=== PATIENT | female | born 1975 | race Caucasian/White ===

== ENCOUNTER → 2016-07-05 | Outpatient (CLI) | payer OTHER ==
[~2016-07-05] MED LIST: DOCU10CA PO; IBUP600T26 PO; PERCOCET PO
--- NOTE | 2016-07-05 16:42 | REP ---
RIGHT UPPER QUADRANT SONOGRAPHY: HISTORY: Right upper quadrant pain. Comparison study is from January 12, 2016. This showed fatty infiltration of the liver. FINDINGS: Scanning through the right upper quadrant of the abdomen shows poor insonation of the liver with no focal lesion. Increased echogenicity again seen consistent with fatty infiltration. The common bile duct is somewhat dilated measuring 1.0 cm in greatest dimension. The gallbladder is dilated up to 12.5 cm in length. No stone is seen. Gallbladder wall thickness is borderline at 3.5 mm. Common bile duct 0.6 cm. There is no evidence of ascites or right renal abnormality. The right kidney measures 12.6 x 5.9 x 5.7 cm. Limited views of the pancreas show no abnormality. IMPRESSION: Dilated common bile duct and mildly dilated gallbladder without obvious etiology. Evidence of fatty infiltration of the liver. Pancreas partially obscured by abdominal gas. Signed by Pete Chinchilla MD 07/05/2016 06:01 P
== END ==
LOC: M RAD 07:21
PROVIDERS: ATTEND Physician Assistant
DX: R10.11 Right upper quadrant pain (principal)

== ENCOUNTER → 2016-07-26 | Day surgery (SDC) | payer OTHER ==
[~2016-07-26] VITALS: Ht 162.6 cm; Wt 131.5 kg
[~2016-07-26] MED LIST changes: +ACETAMINOPHEN 650 MG SUPP As Ordered ONE; +ACETAMINOPHEN 650 MG SUPP PR ONE; +IBUP800T23 PO; +IBUPROFEN 800 MG TAB PO SCH; +KETOROLAC 60 MG/2 ML VIAL (J1885) As Ordered ONE; +LIDOCAINE 2% INJ 100 MG/5 ML SDV (FOR ANES.) As Ordered ONE; +LR 1,000 ML IV SCH; +METOCLOPRAMIDE INJ 10MG/2ML VIAL (J2765) As Ordered ONE; +METOCLOPRAMIDE INJ 10MG/2ML VIAL (J2765) IV PRN; +MIDAZOLAM INJ 2 MG/2 ML VIAL (J2250) As Ordered ONE; +OMEP40CA2 PO; +ONDANSETRON 4MG/2ML VIAL (J2405) As Ordered ONE; +ONDANSETRON 4MG/2ML VIAL (J2405) IV PRN; +PERCOCET 5MG/325MG TAB PO PRN; +PROPOFOL 200 MG/20 ML VIAL As Ordered ONE; +fentaNYL 100 MCG/2 ML INJECTION (J3010) As Ordered ONE; +fentaNYL 100 MCG/2 ML INJECTION (J3010) IV PRN
[2016-07-26 07:23] LABS: MEAN CORPUSCULAR HEMOGLOBIN 29.2 pg (27.0-33.0); MEAN CORPUSCULAR VOLUME 88.3 fl (80.0-96.0); RED CELL DISTRIBUTION WIDTH 13.6 % (11.5-14.5); WHITE BLOOD COUNT 6.7 K/mm3 (4.0-10.0)
[2016-07-26 07:40] LABS: CONTROL LINE HCG INT CTR LINE PRESENT
--- NOTE | 2016-07-26 09:53 | RO ---
DATE OF PROCEDURE: 07/26/2016 PREOPERATIVE DIAGNOSIS: Menometrorrhagia. POSTOPERATIVE DIAGNOSIS: Menometrorrhagia. PROCEDURE: 1. Dilation and curettage (D and C). 2. Hysteroscopy. 3. NovaSure endometrial ablation. SURGEON: Dr. Tenzin Azar ADOBE MAKER: ANESTHESIA: COMPLICATIONS: None. ESTIMATED BLOOD LOSS: Less than 100 mL. TIME OF THE ENDOMETRIAL CYCLE: 1 minute and 10 seconds. SPECIMEN SENT TO THE LAB: Endometrial curetting. Janice is a 41-year-old female with a history of menometrorrhagia. After counseling in the office, a decision was made for dilation and curettage (D and C) hysteroscopy and NovaSure ablation. PROCEDURE: After obtaining informed consent and counseling the patient again in the holding area, she was then brought back under general anesthesia. She was draped and prepped in the usual sterile fashion. Straight catheter of the bladder was performed for approximately 100 mL of clear urine. We then placed a weighted speculum in the posterior fornix of the vagina. Using a Lee retractor, the anterior lip of the cervix was then grasped with a single-tooth tenaculum. The uterus was sounded to approximately 10 cm in size giving a cavity length of 6.5. The cervix was then serially dilated. A hysteroscope was inserted. The endometrial cavity was visualized. Bilateral tubal ostia visualized. No evidence of any polyp or fibroids. At this point, the hysteroscope was removed. A sharp curettage of the endometrial lining was done. The tissues were sent to pathology for final diagnosis. The NovaSure endometrial ablation device was inserted. The cavity length was adjusted to 6.5. The cavity width to 4.5. A cavity test was then done. After passing the cavity test, the device was enabled and the endometrial ablation cycle lasted approximately 1 minute and 10 seconds. Good ablative process noted. Good hemostasis noted. The patient tolerated the procedure well. She was then transferred to recovery room in stable condition.
[2016-07-26 11:00] VITALS: BP 134/63
== END | disposition home or self-care (01) ==
LOC: M SDC 06:43
PROVIDERS: ATTEND Obstetrics & Gynecology
DX: N92.0 Excessive and frequent menstruation with regular cycle (principal); G47.30 Sleep apnea, unspecified; K44.9 Diaphragmatic hernia without obstruction or gangrene; Z79.899 Other long term (current) drug therapy

== ENCOUNTER → 2016-07-28 | Outpatient (CLI) | payer OTHER ==
[~2016-07-28] MED LIST changes: -ACETAMINOPHEN 650 MG SUPP As Ordered ONE; -ACETAMINOPHEN 650 MG SUPP PR ONE; -IBUPROFEN 800 MG TAB PO SCH; -KETOROLAC 60 MG/2 ML VIAL (J1885) As Ordered ONE; -LIDOCAINE 2% INJ 100 MG/5 ML SDV (FOR ANES.) As Ordered ONE; -LR 1,000 ML IV SCH; -METOCLOPRAMIDE INJ 10MG/2ML VIAL (J2765) As Ordered ONE; -METOCLOPRAMIDE INJ 10MG/2ML VIAL (J2765) IV PRN; -MIDAZOLAM INJ 2 MG/2 ML VIAL (J2250) As Ordered ONE; -ONDANSETRON 4MG/2ML VIAL (J2405) As Ordered ONE; -ONDANSETRON 4MG/2ML VIAL (J2405) IV PRN; -PERCOCET 5MG/325MG TAB PO PRN; -PROPOFOL 200 MG/20 ML VIAL As Ordered ONE; -fentaNYL 100 MCG/2 ML INJECTION (J3010) As Ordered ONE; -fentaNYL 100 MCG/2 ML INJECTION (J3010) IV PRN
--- NOTE | 2016-07-28 10:43 | REP ---
MRCP EXAMINATION: HISTORY: Gallbladder disease. Comparison study CT examination July 10, 2016 and ultrasound exam July 05, 2016. TECHNIQUE: T2-weighted coronal TRUE FISP and axial T2 HASTE images are acquired. In addition, MRCP exam is acquired with maximum intensity projection images displayed rotational about the vertical axis. Source coronal images are also reviewed. MRCP FINDINGS: No focal hepatic lesion is seen. There appear to be regional areas of fat sparing in the right lobe. No ascites seen. The gallbladder is not dilated at the time of the MRCP exam. Common bile duct and pancreatic duct are normal in caliber. No filling defect is seen within the common bile duct or gallbladder to suggest biliary calculus. The visualized intrahepatic ducts are unremarkable. CBD measures 5 mm. IMPRESSION: Normal MRCP exam. Signed by Pete Chinchilla MD 07/28/2016 01:51 P
== END ==
LOC: M RAD 08:47
PROVIDERS: ATTEND Surgery
DX: K81.0 Acute cholecystitis (principal)

== ENCOUNTER → 2016-10-25 | Outpatient (CLI) | payer OTHER ==
--- NOTE | 2016-10-25 07:32 | ECGEPIP ---
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
--- NOTE | 2016-10-25 07:52 | REP ---
Clinical: Hypertension. Technique: PA and lateral. Comparison: 12/14/2014. Findings: Mediastinum and cardiac silhouette are normal. Lung diaz demonstrate increased bibasilar markings and atelectasis versus subtle fibrosis cannot be excluded. No effusion. No pneumothorax. Skeletal structures intact. Impression: Subtle lower lobe increased markings cannot exclude atelectasis and/or mild fibrosis. Consider chest CT for further investigation if the patient demonstrates symptoms. Signed by Austin Woodward MD 10/25/2016 07:43 A
[2016-10-25 07:55] LABS: MEAN CORPUSCULAR HEMOGLOBIN 29.3 pg (27.0-33.0); MEAN CORPUSCULAR HGB CONC 32.7 g/dl (32.0-36.5); MEAN CORPUSCULAR VOLUME 89.6 fl (80.0-96.0); RED CELL DISTRIBUTION WIDTH 13.5 % (11.5-14.5); WHITE BLOOD COUNT 7.5 K/mm3 (4.0-10.0)
[2016-10-25 08:29] LABS: ALBUMIN 3.3 GM/DL (3.2-5.2); ALBUMIN/GLOBULIN RATIO 0.92 (1.00-1.93); ALKALINE PHOSPHATASE 77 U/L (45-117); ALT/SGPT 37 U/L (12-78); ANION GAP 10 MEQ/L (8-16); AST/SGOT 10 U/L (15-37); BILIRUBIN,TOTAL 0.3 MG/DL (0.2-1.0); BLOOD UREA NITROGEN 9 MG/DL (7-18); CALCIUM LEVEL 8.6 MG/DL (8.5-10.1); CARBON DIOXIDE LEVEL 27 MEQ/L (21-32); CHLORIDE LEVEL 103 MEQ/L (98-107); CHOLESTEROL LEVEL 140 MG/DL (<200); CREATININE FOR GFR 0.63 MG/DL (0.55-1.02); GLOMERULAR FILTRATION RATE > 60.0 (>60); GLUCOSE, FASTING 101 MG/DL (70-105); POTASSIUM SERUM 4.4 MEQ/L (3.5-5.1); SODIUM LEVEL 140 MEQ/L (136-145); THYROXINE (T4) 11.4 UG/DL (4.5-12.0); TOTAL PROTEIN 6.9 GM/DL (6.4-8.2); TRIGLYCERIDES LEVEL 104 MG/DL (<150)
== END ==
LOC: M LAB 06:55
PROVIDERS: ATTEND Family Medicine
DX: I10 Essential (primary) hypertension (principal)

== ENCOUNTER → 2016-10-31 | Outpatient (CLI) | payer OTHER ==
--- NOTE | 2016-10-31 15:40 | REPMRS ---
Patient History The patient states she had a clinical breast exam in 06/16. denied.Patient had first child at age 37. No known family history of cancer. Digital Mammo Screening Bilat: October 31, 2016 - Exam #: [id number] Bilateral CC and MLO view(s) were taken. Technologist: Darcy Torres Technologist FINDINGS: There are scattered fibroglandular densities. There is no evidence of cancer on this mammogram. ASSESSMENT: BI-RADS/ACR category 2 mammogram. Benign finding(s). Recommendation Routine screening mammogram of both breasts in 1 year (for women over age 40). This mammogram was interpreted with the aid of an FDA-approved computer-aided dectection system. Electronically Signed By: Valentin Russell MD 10/31/16 0656
== END ==
LOC: M RAD 14:55
PROVIDERS: ATTEND Family Medicine
DX: Z12.31 Encounter for screening mammogram for malignant neoplasm of breast (principal)

== ENCOUNTER → 2017-01-11 | Outpatient (CLI) | payer OTHER ==
[~2017-01-11] MED LIST changes: +IBUP1TAB7 PO; -IBUP800T23 PO
--- NOTE | 2017-01-11 09:21 | REP ---
Chest x-ray: Two views. History: Spot on lung. . Comparison study: October 25, 2016 . Findings: The lungs are well inflated and free of infiltrate. The pleural angles are sharp. The heart size is normal. Pulmonary vasculature is not increased. No significant bony abnormality is seen. Impression: Negative chest x-ray. Signed by Pete Chinchilla MD 01/11/2017 09:13 A
== END ==
LOC: M RAD 06:59
PROVIDERS: ATTEND Family Medicine
DX: R91.8 Other nonspecific abnormal finding of lung field (principal)

== ENCOUNTER → 2017-04-05 | Outpatient (CLI) | payer OTHER ==
[2017-04-05 07:49] LABS: ALBUMIN 3.3 GM/DL (3.2-5.2); ALBUMIN/GLOBULIN RATIO 0.92 (1.00-1.93); ALKALINE PHOSPHATASE 70 U/L (45-117); ALT/SGPT 38 U/L (12-78); ANION GAP 9 MEQ/L (8-16); AST/SGOT 12 U/L (15-37); BILIRUBIN,TOTAL 0.2 MG/DL (0.2-1.0); BLOOD UREA NITROGEN 11 MG/DL (7-18); CALCIUM LEVEL 8.5 MG/DL (8.5-10.1); CARBON DIOXIDE LEVEL 24 MEQ/L (21-32); CHLORIDE LEVEL 106 MEQ/L (98-107); CREATININE FOR GFR 0.58 MG/DL (0.55-1.02); GLOMERULAR FILTRATION RATE > 60.0 (>60); GLUCOSE, FASTING 100 MG/DL (70-105); POTASSIUM SERUM 4.2 MEQ/L (3.5-5.1); SODIUM LEVEL 139 MEQ/L (136-145); TOTAL PROTEIN 6.9 GM/DL (6.4-8.2)
== END ==
LOC: M LAB 06:36
PROVIDERS: ATTEND Family Medicine
DX: R73.03 Prediabetes (principal)

== ENCOUNTER → 2017-05-21 | Outpatient (CLI) | payer OTHER, SELFPAY ==
[2017-05-21 08:14] LABS: FREE T4 1.2 NG/DL (0.76-1.46)
== END ==
LOC: M LAB 06:43
PROVIDERS: ATTEND Family Medicine
DX: Z86.39 Personal history of other endocrine, nutritional and metabolic disease (principal)

== ENCOUNTER → 2017-11-12 | Outpatient (CLI) | payer BC ==
[2017-11-12 14:38] LABS: ESTIMATED AVERAGE GLUCOSE 128 MG/DL (60-110); HEMOGLOBIN A1c 6.1 %
== END ==
LOC: M LAB 12:13
DX: R73.03 Prediabetes (principal)
CPT/HCPCS: 83036

== ENCOUNTER 2018-01-16 22:30 | Emergency (ER) | payer BC, SELFPAY | END 2018-01-17 03:10 | disposition home or self-care (01) | LOC: M ED 22:30 | DX: S62.636A Displaced fracture of distal phalanx of right little finger, initial encounter for closed fracture (principal); W22.8XXA Striking against or struck by other objects, initial encounter; Y92.099 Unspecified place in other non-institutional residence as the place of occurrence of the external cause; Y93.9 Activity, unspecified; Y99.9 Unspecified external cause status | CPT/HCPCS: 73140 ==

== ENCOUNTER 2018-04-24 13:18 | Emergency (ER) | payer BC, SELFPAY ==
[2018-04-24 14:36] LABS: BASO % 0.2 % (0.0-1.0); EOS # 0.1 10^3/uL (0.0-0.50); EOS % 0.8 % (0.0-3.0); HEMATOCRIT 37.3 % (36.0-47.0); HEMOGLOBIN 12.5 g/dl (12.0-15.5); IMMATURE GRANULOCYTE % 0.4 % (0-3.0); LYMPH # 1.7 10^3/uL (1.5-4.5); LYMPH % 14.2 % (24.0-44.0); MEAN CORPUSCULAR HEMOGLOBIN 29.9 pg (27.0-33.0); MEAN CORPUSCULAR HGB CONC 33.5 g/dl (32.0-36.5); MEAN CORPUSCULAR VOLUME 89.2 fl (80.0-96.0); MONO # 0.5 10^3/uL (0.0-0.8); MONO % 4.5 % (0.0-5.0); NEUTROPHILS # 9.4 10^3/uL (1.8-7.7); NEUTROPHILS % 79.9 % (36.0-66.0); PLATELET COUNT, AUTOMATED 296 10^3/uL (150-450); RED BLOOD COUNT 4.18 10^6/uL (4.00-5.40); RED CELL DISTRIBUTION WIDTH 13.1 % (11.5-14.5); WHITE BLOOD COUNT 11.8 10^3/uL (4.0-10.0)
[2018-04-24 14:51] LABS: KETONE, URINE AUTO RFX NEGATIVE (NEGATIVE); LEUKOCYTE ESTERASE UR AUTO RFX NEGATIVE (NEGATIVE); MUCUS, URINE RFX SMALL (NEGATIVE); NITRITE, URINE AUTO RFX NEGATIVE (NEGATIVE); RBC, URINE AUTO RFX 0 /HPF (0-3); SPECIFIC GRAVITY UR AUTO RFX 1.009 (1.002-1.035); SQUAM EPITHELIAL CELL UR AURFX 0 /HPF (0-6); WBC, URINE AUTO RFX 0 /HPF (0-3)
[2018-04-24 15:08] LABS: ANION GAP 8 MEQ/L (8-16); BLOOD UREA NITROGEN 9 MG/DL (7-18); CALCIUM LEVEL 8.8 MG/DL (8.5-10.1); CARBON DIOXIDE LEVEL 27 MEQ/L (21-32); CHLORIDE LEVEL 103 MEQ/L (98-107); CREATININE FOR GFR 0.82 MG/DL (0.55-1.30); GLOMERULAR FILTRATION RATE > 60.0 (>58); GLUCOSE, FASTING 137 MG/DL (70-100); POTASSIUM SERUM 3.9 MEQ/L (3.5-5.1); SODIUM LEVEL 138 MEQ/L (136-145)
[2018-04-24] MEDS ORDERED: ISOVUE-370 76% 100ML VIAL (Q9967) As Ordered (15:54)
[2018-04-24 15:58] LABS: ALBUMIN 3.6 GM/DL (3.2-5.2); ALKALINE PHOSPHATASE 90 U/L (45-117); ALT/SGPT 43 U/L (12-78); AST/SGOT 11 U/L (7-37); BILIRUBIN,DIRECT < 0.1 MG/DL (0.0-0.2); BILIRUBIN,TOTAL 0.2 MG/DL (0.2-1.0); LIPASE 141 U/L (73-393); TOTAL PROTEIN 7.2 GM/DL (6.4-8.2)
[2018-04-24] MEDS: NS 1,000 ML IV (16:10)
== END 2018-04-24 16:41 | disposition home or self-care (01) ==
LOC: M ED 13:18
DX: K57.32 Diverticulitis of large intestine without perforation or abscess without bleeding (principal); G47.30 Sleep apnea, unspecified; K76.0 Fatty (change of) liver, not elsewhere classified
CPT/HCPCS: Q9967

== ENCOUNTER → 2018-06-20 | Outpatient (CLI) | payer BC ==
[~2018-06-20] MED LIST changes: +CIPR-249 PO; +FLAG500T PO
[2018-06-20 15:30] LABS: HEMOGLOBIN A1c 6.4 %
== END ==
LOC: M LAB 14:40
PROVIDERS: ATTEND Family Medicine
DX: R73.03 Prediabetes (principal)

== ENCOUNTER → 2018-07-19 | Outpatient (CLI) | payer BC ==
--- NOTE | 2018-07-19 15:16 | REPMRS ---
Patient History The patient states she had a clinical breast exam in 07/20.No known family history of cancer. Digital Mammo Screening Bilat: July 19, 2018 - Exam #: [id number] Bilateral CC and MLO view(s) were taken. Technologist: Darcy Torres, Technologist Prior study comparison: October 31, 2016, bilateral digital mammo screening bilat performed at [facility]. FINDINGS: There are scattered fibroglandular densities. There has been no change in the appearance of the mammogram from the prior studies. There is a mild amount of scattered fibroglandular density which is fairly symmetric. There is no interval development of dominant mass, architectural distortion, or clustered microcalcification suggestive of malignancy. 3-D tomosynthesis shows no additional findings. Assessment: BI-RADS/ACR category 1 mammogram. Negative. Recommendation Routine screening mammogram of both breasts in 1 year (for women over age 40). This patient's Lifetime Breast Cancer RIsk is estimated at 14.8 %. This mammogram was interpreted with the aid of an FDA-approved computer-aided dectection system. Electronically Signed By: Stevie Chinchilla MD 07/19/18 2325
== END ==
LOC: M RAD 10:32
PROVIDERS: ATTEND Obstetrics & Gynecology
DX: Z12.31 Encounter for screening mammogram for malignant neoplasm of breast (principal)

== ENCOUNTER → 2018-07-19 | Outpatient (CLI) | payer BC ==
[2018-07-19 12:14] LABS: FREE T4 1.18 NG/DL (0.76-1.46); THYROID STIMULATING HORMONE 1.32 uIU/ML (0.358-3.740)
== END ==
LOC: M LAB 10:47
PROVIDERS: ATTEND Family Medicine
DX: Z86.39 Personal history of other endocrine, nutritional and metabolic disease (principal)

== ENCOUNTER → 2018-07-19 | Outpatient (CLI) | payer BC ==
[2018-07-19 11:56] LABS: ALBUMIN 3.6 GM/DL (3.2-5.2); ALT/SGPT 58 U/L (12-78); BILIRUBIN,DIRECT < 0.1 MG/DL (0.0-0.2); BILIRUBIN,TOTAL 0.2 MG/DL (0.2-1.0); TOTAL PROTEIN 7.6 GM/DL (6.4-8.2)
== END ==
LOC: M LAB 10:53
DX: B35.1 Tinea unguium (principal)

== ENCOUNTER → 2018-08-06 | Outpatient (CLI) | payer BC ==
--- NOTE | 2018-08-07 06:00 | REP ---
Clinical: Thyroid disorder. Technique: Real time servin scale and color evaluation using linear high frequency and curved array transducer. Findings: Thyroid gland is enlarged and mildly heterogeneous. The right lobe measures 5.7 x 2.2 x 1.6 cm and includes 6 x 3 x 6 mm isoechoic mid pole nodule and 3 x 3 x 4 mm lower pole cyst. Left lobe measures 6.1 x 1.8 x 1.9 cm with 3 x 2 x 2 mm lower pole cyst and 5 x 4 x 4 mm nodule with posterior wall calcification. Isthmus measures 7.1 mm in width. Impression: Heterogeneous mildly enlarged thyroid gland with few nonspecific cyst/nodules. Electronically Signed by Austin Woodward MD 08/07/2018 05:51 A
== END ==
LOC: M RAD 10:23
PROVIDERS: ATTEND Family Medicine
DX: Z86.39 Personal history of other endocrine, nutritional and metabolic disease (principal)

== ENCOUNTER 2018-11-25 13:32 | Emergency (ER) | payer BC ==
[~2018-11-25] VITALS: Ht 165.1 cm; Wt 137.4 kg
[~2018-11-25 13:32] MED LIST changes: +OXYC1TAB23 PO; -PERCOCET PO
--- NOTE | 2018-11-25 14:44 | REP ---
Clinical: Cough and dyspnea . Comparison: 01/11/2017 . Technique: PA and lateral. Findings: The mediastinum and cardiac silhouette are normal. The lung diaz are clear and without acute consolidation, effusion, or pneumothorax. The skeletal structures are intact and normal. Impression: 1. No acute cardiopulmonary process. Electronically Signed by Austin Woodward MD 11/25/2018 02:36 P
[2018-11-25 14:53] LABS: BASO % 0.4 % (0.0-1.0); EOS # 0.1 10^3/uL (0.0-0.50); HEMATOCRIT 38.5 % (36.0-47.0); HEMOGLOBIN 12.6 g/dl (12.0-15.5); LYMPH # 2.1 10^3/uL (1.5-4.5); LYMPH % 25.6 % (24.0-44.0); MEAN CORPUSCULAR HEMOGLOBIN 30.3 pg (27.0-33.0); MEAN CORPUSCULAR HGB CONC 32.7 g/dl (32.0-36.5); MEAN CORPUSCULAR VOLUME 92.5 fl (80.0-96.0); MONO # 0.4 10^3/uL (0.0-0.8); MONO % 4.4 % (0.0-5.0); NEUTROPHILS # 5.6 10^3/uL (1.8-7.7); NEUTROPHILS % 68.2 % (36.0-66.0); PLATELET COUNT, AUTOMATED 298 10^3/uL (150-450); RED BLOOD COUNT 4.16 10^6/uL (4.00-5.40); WHITE BLOOD COUNT 8.2 10^3/uL (4.0-10.0)
[2018-11-25 15:38] LABS: BLOOD UREA NITROGEN 10 MG/DL (7-18); CALCIUM LEVEL 9.2 MG/DL (8.5-10.1); CARBON DIOXIDE LEVEL 28 MEQ/L (21-32); CHLORIDE LEVEL 105 MEQ/L (98-107); CPK CREATINE PHOSPHOKINASE 88 U/L (26-192); CREATININE FOR GFR 0.79 MG/DL (0.55-1.30); GLOMERULAR FILTRATION RATE > 60.0 (>58); GLUCOSE, FASTING 114 MG/DL (70-100); MB/CK RELATIVE INDEX 1.14 (< OR =4); POTASSIUM SERUM 4.1 MEQ/L (3.5-5.1); SODIUM LEVEL 139 MEQ/L (136-145); TROPONIN I < 0.02 NG/ML (< 0.10)
[2018-11-25] MEDS ORDERED: NS 1,000 ML IV ONE (15:45)
[2018-11-25 16:15] LABS: FREE T4 1.06 NG/DL (0.76-1.46)
[2018-11-25 17:09] VITALS: O2SAT 94
[2018-11-25] MEDS ORDERED: ISOVUE-370 76% 100ML VIAL (Q9967) As Ordered ONE (17:33)
[2018-11-25 19:42] VITALS: BP 128/85
--- NOTE | 2018-11-25 21:09 | ECGEPIP ---
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 Order Number: [id number] Reading MD: Wilma Chavira Measurements Intervals [place] Rate: 77 P: 50 RI: 159 QRS: 3 QRSD: 93 T: 48 QT: 392 QTc: 446 Interpretive Statements SINUS RHYTHM LOW QRS VOLTAGE IN PRECORDIAL LEADS NONSPECIFIC T-WAVE ABNORMALITY SIMILAR 10/25/16 Electronically Signed on 11-25-2018 21:09:05 EDT by Wilma Chavira
--- NOTE | 2018-11-26 07:30 | REP ---
Clinical: Acute chest pain and shortness of breath. . Technique: Axial contrast enhanced images from the thoracic inlet to the upper abdomen using 100 ml Isovue 370 intravenous contrast material with coronal and sagittal re-formations. Findings: Satisfactory enhancement of the pulmonary vasculature is achieved and no filling defects are identified to suggest pulmonary embolus. Thoracic aorta is normal caliber without aneurysm or dissection. Heart and pericardium are normal. No adenopathy. Bilateral lung diaz demonstrate mild posterior basilar dependent changes and trace left basilar atelectasis. No consolidation. No nodule or mass lesion. No pleural effusion/reaction. No pneumothorax. Visualized musculoskeletal structures are intact without focal osseous abnormality. Limited upper abdomen demonstrates normal bilateral adrenal glands. Impression: No evidence for pulmonary embolus. Trace left basilar atelectasis. Electronically Signed by Austin Woodward MD 11/25/2018 05:46 P
== END 2018-11-25 19:59 | disposition home or self-care (01) ==
LOC: M ED 13:32
DX: J98.11 Atelectasis (principal); R73.03 Prediabetes; G47.33 Obstructive sleep apnea (adult) (pediatric); K21.9 Gastro-esophageal reflux disease without esophagitis
CPT/HCPCS: 36415; 71046; 71275; 80048; 82550; 82553; 84439; 84443; 85025; 85379; 93005; 99284; Q9967

== ENCOUNTER → 2018-12-18 | Outpatient (CLI) | payer OTHER ==
--- NOTE | 2018-12-18 14:22 | PFTRPT ---
Height: 65.00 Inches Weight: 290.00 Lbs BSA: 2.32 Diagnosis: R06.00 DATE OF PROCEDURE: 12/18/2018 ORDERED BY: Lexus Bryant DO Spirometry: Study of excellent technical quality. Forced vital capacity borderline. FEV1 in proportion. Obstructive index is, therefore, normal. Flow Volume Loop: Expiratory limb of the flow volume loop is reasonably normal. Lung Volumes: Total lung capacity normal. Residual volume is in proportion. Diffusing Capacity: Diffusing capacity normal. Hemoglobin: No hemoglobin available for correction. Airway Mechanics: Airway resistance and conductance are normal. IMPRESSION: Probably normal study. MTDD
== END ==
LOC: M CARPUL 13:52
PROVIDERS: ATTEND Family Medicine
DX: R06.00 Dyspnea, unspecified (principal)

== ENCOUNTER → 2018-12-18 | Outpatient (CLI) | payer OTHER, SELFPAY ==
--- NOTE | 2018-12-19 06:57 | ECHO ---
DATE OF PROCEDURE: 12/18/2018 DATE OF : 1975 AGE: 43 REFERRING PROVIDER: Dr. Lexus Bryant PATIENT LOCATION: Outpatient REASON FOR ECHOCARDIOGRAM: Shortness of breath. 2-D MEASUREMENTS: IVS: 1.2 cm LV: 4.8 cm LVPW: 1.2 cm LA: 4.0 cm Aorta: 2.7 cm DOPPLER MEASUREMENTS: Peak velocity across the aortic valve: 1.5 m/s Peak velocity across the LVOT: 1.3 m/s Mitral E: 1.0 Mitral: 0.70 Ratio: 1.4 Maximum tricuspid valve velocity: 2.2 m/s 2-D COMMENTS: 1. Technically limited study due to poor acoustic window secondary to lung interference and body habitus. 2. Normal left ventricular size, wall thickness, and normal global left ventricular systolic function. The estimated left ventricular systolic ejection fraction is 60-65%. 3. Borderline enlarged left atrium. Normal right atrium and right ventricle. 4. The atrial septum appeared to be normal without evidence of defect or shunt. 5. Normal aortic root. 6. No pericardial effusion seen. 7. The aortic valve, mitral valve, tricuspid valve, and pulmonic valve appeared to be normal. The proximal pulmonary artery branches were not well visualized. 8. Subjectively, the inferior vena cava appeared to be normal in size. DOPPLER: Detects trace mitral regurgitation and trace tricuspid regurgitation. The calculated pulmonary artery systolic pressure was normal. Assessment of the left ventricular diastolic function also appeared to be normal. IMPRESSION: 1. Normal global left ventricular systolic and diastolic function. 2. Borderline enlarged left atrium with trace mitral regurgitation. 3. Trace tricuspid regurgitation with a normal calculated pulmonary artery systolic pressure. 4. The study was technically limited due to poor acoustic window secondary to body habitus and lung interference. [facility]
== END ==
LOC: M CARPUL 13:49
PROVIDERS: ATTEND Family Medicine
DX: R06.00 Dyspnea, unspecified (principal)

== ENCOUNTER → 2019-08-22 | Outpatient (CLI) | payer OTHER ==
[~2019-08-22] MED LIST changes: -OMEP40CA2 PO; +OMEP40CA97 PO
--- NOTE | 2019-08-22 08:42 | REPMRS ---
Patient History The patient states she had a clinical breast exam in July 2019. No known family history of cancer. Digital Woman Screen Mammo: August 22, 2019 - Exam #: [id number] Bilateral CC and MLO view(s) were taken. Technologist: Batsheva Dewey Technologist Prior study comparison: July 19, 2018, bilateral digital mammo screening bilat, performed at [facility]. October 31, 2016, bilateral digital mammo screening bilat, performed at [facility]. FINDINGS: There are scattered fibroglandular densities. There has been no change in the appearance of the mammogram from the prior studies. There is a mild amount of scattered fibroglandular density which is fairly symmetric. There is no interval development of dominant mass, architectural distortion, or grouped microcalcification suggestive of malignancy. 3-D tomosynthesis shows no additional findings. Assessment: BI-RADS/ACR category 1 mammogram. Negative Mammogram. Recommendation Routine screening mammogram of both breasts in 1 year (for women over age 40). This patient's Lifetime Breast Cancer Risk is estimated at 14.6 %. This mammogram was interpreted with the aid of an FDA-approved computer-aided dectection system. Electronically Signed By: Stevie Chinchilla MD 08/22/19 0893
== END ==
LOC: M WHC 07:54
PROVIDERS: ATTEND Obstetrics & Gynecology
DX: Z12.31 Encounter for screening mammogram for malignant neoplasm of breast (principal)

== ENCOUNTER 2020-02-14 09:40 | Emergency (ER) | payer OTHER ==
[2020-03-29 14:05] LABS: BASO % 0.3 % (0.0-1.0); EOS # 0.1 10^3/uL (0.0-0.5); EOS % 0.8 % (0.0-3.0); HEMATOCRIT 39.9 % (36.0-47.0); LYMPH # 1.8 10^3/uL (1.5-5.0); LYMPH % 24.2 % (24.0-44.0); MEAN CORPUSCULAR HEMOGLOBIN 29.4 pg (27.0-33.0); MEAN CORPUSCULAR HGB CONC 32.6 g/dl (32.0-36.5); MEAN CORPUSCULAR VOLUME 90.3 fl (80.0-96.0); MONO # 0.4 10^3/uL (0.0-0.8); NEUTROPHILS % 69.3 % (36.0-66.0); PLATELET COUNT, AUTOMATED 314 10^3/uL (150-450); RED BLOOD COUNT 4.42 10^6/uL (4.00-5.40); WHITE BLOOD COUNT 7.3 10^3/uL (4.0-10.0)
== END 2020-02-14 13:22 | disposition home or self-care (01) ==
LOC: M ED 09:40
DX: R10.11 Right upper quadrant pain (principal); R11.0 Nausea; K76.0 Fatty (change of) liver, not elsewhere classified; K21.9 Gastro-esophageal reflux disease without esophagitis; K27.9 Peptic ulcer, site unspecified, unspecified as acute or chronic, without hemorrhage or perforation

== ENCOUNTER → 2020-03-05 | Outpatient (CLI) | payer OTHER ==
--- NOTE | 2020-03-30 13:35 | REP ---
HIDA SCAN WITH GALLBLADDER EJECTION FRACTION HISTORY: Right upper quadrant pain. TECHNIQUE: Following the intravenous administration of 6.5 mCi Technetium-99m mebrofenin, multiple images of the right upper quadrant are performed every five minutes for a period of one hour. FINDINGS: No focal parenchymal defect is seen. The gallbladder is visualized at 20 minutes post-injection. Biliary to bowel transit is seen at the one hour doris. At that point, 8 ounces of Ensure Enlive is ingested and further imaging performed for one hour. Gallbladder activity is measured and the gallbladder ejection fraction is calculated to be 47%, which is normal. IMPRESSION: Normal gallbladder ejection fraction. MTDD
== END ==
LOC: M RAD 07:38
PROVIDERS: ATTEND Surgery
DX: R10.11 Right upper quadrant pain (principal)
CPT/HCPCS: 78227; A9537

== ENCOUNTER → 2021-12-29 | Outpatient (CLI) | payer BC ==
[~2021-12-29] MED LIST changes: +OMEP40CA4 PO; -OMEP40CA97 PO
== END ==
LOC: M WHC 08:04
PROVIDERS: ATTEND Obstetrics & Gynecology
DX: Z12.31 Encounter for screening mammogram for malignant neoplasm of breast (principal)

== ENCOUNTER → 2023-01-04 | Outpatient (CLI) | payer BC | LOC: M WHC 06:47 | PROVIDERS: ATTEND Obstetrics & Gynecology | DX: Z12.31 Encounter for screening mammogram for malignant neoplasm of breast (principal) ==

== ENCOUNTER → 2023-07-06 | Outpatient (CLI) | payer OTHER ==
[2023-07-06 07:46] LABS: HEMATOCRIT 38.6 % (36.0-47.0); HEMOGLOBIN 12.2 g/dl (12.0-15.5); MEAN CORPUSCULAR HGB CONC 31.6 g/dl (32.0-36.5); MEAN CORPUSCULAR VOLUME 91.9 fl (80.0-96.0); PLATELET COUNT, AUTOMATED 293 10^3/uL (150-450); WHITE BLOOD COUNT 8.7 10^3/uL (4.0-10.0)
[2023-07-06 07:51] LABS: ALBUMIN 3.6 G/DL (3.2-5.2); ALKALINE PHOSPHATASE 79 U/L (46-116); ALT/SGPT 44 U/L (7.0-40); AST/SGOT 20 U/L (<34); BILIRUBIN,TOTAL 0.3 MG/DL (0.3-1.2); BLOOD UREA NITROGEN 9 MG/DL (9-23); CALCIUM LEVEL 9.1 MG/DL (8.5-10.1); CARBON DIOXIDE LEVEL 29 MMOL/L (20-31); CHLORIDE LEVEL 104 MMOL/L (98-107); CHOLESTEROL LEVEL 166 MG/DL (<200); CHOLESTEROL RISK RATIO 3.66 (<5); CREATININE FOR GFR 0.52 MG/DL (0.55-1.30); GLOMERULAR FILTRATION RATE > 60.0 (>58); GLUCOSE, FASTING 135 MG/DL (60-100); HDL CHOLESTEROL 45.3 MG/DL (>40); LDL CHOLESTEROL 98.1 MG/DL (<100); NON-HDL-C 120.7 MG/DL; POTASSIUM SERUM 4.3 MMOL/L (3.5-5.1); SODIUM LEVEL 138 MMOL/L (136-145); TOTAL PROTEIN 6.8 G/DL (5.7-8.2); TRIGLYCERIDES LEVEL 113 MG/DL (<150)
[2023-07-06 07:54] LABS: THYROID STIMULATING HORMONE 2.275 uIU/ML (0.55-4.78)
[2023-07-06 07:55] LABS: TOTAL 25(OH) VITAMIN D 34.1 NG/ML (20.0-100.0)
[2023-07-06 08:56] LABS: HEMOGLOBIN A1c 6.5 % (4.0-6.0)
== END ==
LOC: M RAD 07:00
PROVIDERS: ATTEND Family Medicine
DX: R53.83 Other fatigue (principal); I10 Essential (primary) hypertension; E03.9 Hypothyroidism, unspecified

== ENCOUNTER → 2023-07-09 | Outpatient (CLI) | payer OTHER | LOC: M WHC 11:27 | PROVIDERS: ATTEND Family Medicine | DX: R22.1 Localized swelling, mass and lump, neck (principal) ==

== ENCOUNTER → 2024-02-13 | Outpatient (CLI) | payer OTHER ==
[2024-02-13 07:06] LABS: HEMATOCRIT 39.2 % (36.0-47.0); HEMOGLOBIN 12.7 g/dl (12.0-15.5); MEAN CORPUSCULAR HEMOGLOBIN 30.8 pg (27.0-33.0); MEAN CORPUSCULAR HGB CONC 32.4 g/dl (32.0-36.5); MEAN CORPUSCULAR VOLUME 95.1 fl (80.0-96.0); PLATELET COUNT, AUTOMATED 285 10^3/uL (150-450); RED BLOOD COUNT 4.12 10^6/uL (4.00-5.40); WHITE BLOOD COUNT 7.7 10^3/uL (4.0-10.0)
[2024-02-13 07:20] LABS: HEMOGLOBIN A1c 6.2 % (4.0-6.0)
[2024-02-13 07:30] LABS: ALBUMIN 3.5 G/DL (3.2-5.2); ALKALINE PHOSPHATASE 76 U/L (46-116); ALT/SGPT 40 U/L (7.0-40); AST/SGOT 15 U/L (<34); BILIRUBIN,TOTAL 0.3 MG/DL (0.3-1.2); BLOOD UREA NITROGEN 10 MG/DL (9-23); CALCIUM LEVEL 8.9 MG/DL (8.5-10.1); CARBON DIOXIDE LEVEL 27 MMOL/L (20-31); CHLORIDE LEVEL 103 MMOL/L (98-107); CHOLESTEROL LEVEL 157 MG/DL (<200); CHOLESTEROL RISK RATIO 3.69 (<5); CREATININE FOR GFR 0.53 MG/DL (0.55-1.30); GLOMERULAR FILTRATION RATE > 60.0 (>58); GLUCOSE, FASTING 126 MG/DL (60-100); HDL CHOLESTEROL 42.5 MG/DL (>40); IRON (FE) 63 UG/DL (50-170); LDL CHOLESTEROL 87.9 MG/DL (<100); NON-HDL-C 114.5 MG/DL; PERCENT SATURATION 21.3 % (13.2-45.0); POTASSIUM SERUM 4.4 MMOL/L (3.5-5.1); SODIUM LEVEL 135 MMOL/L (136-145); TOTAL IRON BINDING CAPACITY 296 UG/DL (250-425); TOTAL PROTEIN 6.9 G/DL (5.7-8.2); TRIGLYCERIDES LEVEL 133 MG/DL (<150)
[2024-02-13 07:32] LABS: THYROID STIMULATING HORMONE 2.022 uIU/ML (0.55-4.78)
== END ==
LOC: M LAB 06:08
PROVIDERS: ATTEND Family Medicine
DX: R53.83 Other fatigue (principal); I10 Essential (primary) hypertension; E11.9 Type 2 diabetes mellitus without complications

== ENCOUNTER → 2024-06-27 | Outpatient (CLI) | payer OTHER ==
[2024-06-27 06:56] LABS: HEMATOCRIT 37.4 % (36.0-47.0); HEMOGLOBIN 12.2 g/dl (12.0-15.5); MEAN CORPUSCULAR HEMOGLOBIN 30.6 pg (27.0-33.0); MEAN CORPUSCULAR HGB CONC 32.6 g/dl (32.0-36.5); MEAN CORPUSCULAR VOLUME 93.7 fl (80.0-96.0); PLATELET COUNT, AUTOMATED 315 10^3/uL (150-450); RED BLOOD COUNT 3.99 10^6/uL (4.00-5.40); WHITE BLOOD COUNT 8.9 10^3/uL (4.0-10.0)
[2024-06-27 07:18] LABS: ALBUMIN 3.5 G/DL (3.2-5.2); ALKALINE PHOSPHATASE 68 U/L (35-104); ALT/SGPT 30 U/L (7.0-40); AST/SGOT 10 U/L (<34); BILIRUBIN,TOTAL 0.4 MG/DL (0.3-1.2); BLOOD UREA NITROGEN 11 MG/DL (9-23); CALCIUM LEVEL 9.3 MG/DL (8.5-10.1); CARBON DIOXIDE LEVEL 27 MMOL/L (20-31); CHLORIDE LEVEL 105 MMOL/L (98-107); CHOLESTEROL LEVEL 174 MG/DL (<200); CHOLESTEROL RISK RATIO 3.66 (<5); CREATININE FOR GFR 0.57 MG/DL (0.55-1.30); GLOMERULAR FILTRATION RATE > 60.0 (>58); GLUCOSE, FASTING 102 MG/DL (60-100); HDL CHOLESTEROL 47.5 MG/DL (>40); IRON (FE) 67 UG/DL (50-170); LDL CHOLESTEROL 104.9 MG/DL (<100); NON-HDL-C 126.5 MG/DL; POTASSIUM SERUM 4.6 MMOL/L (3.5-5.1); SODIUM LEVEL 139 MMOL/L (136-145); TOTAL PROTEIN 6.7 G/DL (5.7-8.2); TRIGLYCERIDES LEVEL 108 MG/DL (<150)
[2024-06-27 07:19] LABS: PERCENT SATURATION 22.9 % (13.2-45.0); TOTAL IRON BINDING CAPACITY 292 UG/DL (250-425)
[2024-06-27 07:20] LABS: THYROID STIMULATING HORMONE 1.668 uIU/ML (0.55-4.78)
[2024-06-27 07:53] LABS: HEMOGLOBIN A1c 5.3 % (4.0-6.0)
== END ==
LOC: M LAB 06:31
PROVIDERS: ATTEND Family Medicine
DX: R53.83 Other fatigue (principal); I10 Essential (primary) hypertension; E11.9 Type 2 diabetes mellitus without complications

== ENCOUNTER → 2024-07-09 | Outpatient (CLI) | payer OTHER | LOC: M WHC 06:39 | PROVIDERS: ATTEND Obstetrics & Gynecology | DX: Z12.31 Encounter for screening mammogram for malignant neoplasm of breast (principal); R92.323 Mammographic fibroglandular density, bilateral breasts ==

== ENCOUNTER 2024-08-11 07:43 | Emergency (ER) | payer OTHER ==
[~2024-08-11] VITALS: Ht 162.6 cm; Wt 125.6 kg
[2024-08-11] MEDS ORDERED: LISI10TA22 (07:48)
[2024-08-11] MEDS ORDERED: METF500T13 (07:48)
[2024-08-11] MEDS ORDERED: OMEP40CA5 (07:48)
[2024-08-11] MEDS ORDERED: SEMA2PEN (07:48)
[2024-08-11] MEDS: ACETAMINOPHEN 325 MG TAB PO ONE (09:02)
[2024-08-11] MEDS: ALBUTEROL SULFATE 2.5MG/0.5ML INH NEB SOLN NEB ONE (09:06)
[2024-08-11 09:25] LABS: RSV AMPLIFICATION NEGATIVE (NEGATIVE)
[2024-08-11 09:28] VITALS: BP 102/52; TEMP 102.3; O2SAT 93
[2024-08-11] MEDS ORDERED: VENTAER INH (09:39)
[2024-08-11] MEDS ORDERED: BENZ200C70 PO (09:39)
== END 2024-08-11 09:47 | disposition home or self-care (01) ==
LOC: M ED 07:43
DX: J09.X2 Influenza due to identified novel influenza A virus with other respiratory manifestations (principal); K21.9 Gastro-esophageal reflux disease without esophagitis; I10 Essential (primary) hypertension; G47.30 Sleep apnea, unspecified; Z79.52 Long term (current) use of systemic steroids; Z79.4 Long term (current) use of insulin; Z79.899 Other long term (current) drug therapy

== ENCOUNTER 2024-11-06 09:52 | Emergency (ER) | payer OTHER ==
[~2024-11-06] VITALS: Ht 162.6 cm; Wt 122.8 kg
[~2024-11-06 09:52] MED LIST changes: +BENZ200C70 PO; +LISI10TA22; +METF500T13; +OMEP40CA5; +SEMA2PEN; +VENTAER INH
[2024-11-06 11:46] LABS: BASO % 0.4 % (0.0-1.0); EOS # 0.1 10^3/uL (0.0-0.5); EOS % 1.3 % (0.0-3.0); HEMATOCRIT 41.8 % (36.0-47.0); HEMOGLOBIN 13.7 g/dl (12.0-15.5); LYMPH # 2.3 10^3/uL (1.5-5.0); LYMPH % 24.4 % (24.0-44.0); MEAN CORPUSCULAR HEMOGLOBIN 30.1 pg (27.0-33.0); MEAN CORPUSCULAR HGB CONC 32.8 g/dl (32.0-36.5); MEAN CORPUSCULAR VOLUME 91.9 fl (80.0-96.0); MONO # 0.4 10^3/uL (0.0-0.8); MONO % 4.5 % (2.0-8.0); NEUTROPHILS # 6.4 10^3/uL (1.5-8.5); NEUTROPHILS % 69.2 % (36.0-66.0); PLATELET COUNT, AUTOMATED 393 10^3/uL (150-450); RED BLOOD COUNT 4.55 10^6/uL (4.00-5.40); WHITE BLOOD COUNT 9.3 10^3/uL (4.0-10.0)
[2024-11-06 11:47] LABS: KETONE, URINE AUTO RFX NEGATIVE (NEGATIVE); LEUKOCYTE ESTERASE UR AUTO RFX NEGATIVE (NEGATIVE); NITRITE, URINE AUTO RFX NEGATIVE (NEGATIVE); RBC, URINE AUTO RFX 0 /HPF (0-3); SQUAM EPITHELIAL CELL UR AURFX 1 /HPF (0-6); WBC, URINE AUTO RFX 1 /HPF (0-3)
[2024-11-06 12:14] LABS: LIPASE 60 U/L (12-53)
[2024-11-06 12:15] LABS: AMYLASE 60 U/L (30-118)
[2024-11-06 12:17] LABS: ALBUMIN 3.9 G/DL (3.2-5.2); ALKALINE PHOSPHATASE 84 U/L (35-104); ALT/SGPT 34 U/L (7.0-40); AST/SGOT 11 U/L (<34); BILIRUBIN,DIRECT < 0.1 MG/DL (<0.4); BILIRUBIN,TOTAL 0.2 MG/DL (0.3-1.2); BLOOD UREA NITROGEN 10 MG/DL (9-23); CALCIUM LEVEL 9.6 MG/DL (8.5-10.1); CARBON DIOXIDE LEVEL 28 MMOL/L (20-31); CHLORIDE LEVEL 103 MMOL/L (98-107); CREATININE FOR GFR 0.55 MG/DL (0.55-1.30); GLOMERULAR FILTRATION RATE > 90.0 (>58); GLUCOSE, FASTING 85 MG/DL (60-100); POTASSIUM SERUM 4.2 MMOL/L (3.5-5.1); SODIUM LEVEL 141 MMOL/L (136-145); TOTAL PROTEIN 7.8 G/DL (5.7-8.2)
[2024-11-06] MEDS ORDERED: ISOVUE-370 76% 100ML VIAL As Ordered ONE (12:24)
[2024-11-06 13:23] LABS: BASO % 0.5 % (0.0-1.0); EOS # 0.1 10^3/uL (0.0-0.5); EOS % 1.1 % (0.0-3.0); HEMATOCRIT 36.6 % (36.0-47.0); LYMPH # 2.2 10^3/uL (1.5-5.0); LYMPH % 26.8 % (24.0-44.0); MEAN CORPUSCULAR HEMOGLOBIN 30.2 pg (27.0-33.0); MEAN CORPUSCULAR HGB CONC 32.8 g/dl (32.0-36.5); MEAN CORPUSCULAR VOLUME 92.2 fl (80.0-96.0); MONO # 0.4 10^3/uL (0.0-0.8); MONO % 4.7 % (2.0-8.0); NEUTROPHILS # 5.5 10^3/uL (1.5-8.5); NEUTROPHILS % 66.7 % (36.0-66.0); PLATELET COUNT, AUTOMATED 314 10^3/uL (150-450); RED BLOOD COUNT 3.97 10^6/uL (4.00-5.40); WHITE BLOOD COUNT 8.2 10^3/uL (4.0-10.0)
[2024-11-06 14:16] VITALS: BP 105/71; TEMP 98; O2SAT 96
== END 2024-11-06 14:22 | disposition home or self-care (01) ==
LOC: M ED 09:52
DX: N83.292 Other ovarian cyst, left side (principal); D25.9 Leiomyoma of uterus, unspecified; K76.0 Fatty (change of) liver, not elsewhere classified; K57.30 Diverticulosis of large intestine without perforation or abscess without bleeding; I10 Essential (primary) hypertension; K21.9 Gastro-esophageal reflux disease without esophagitis; Z79.52 Long term (current) use of systemic steroids; Z79.4 Long term (current) use of insulin; Z79.899 Other long term (current) drug therapy
CPT/HCPCS: 36415; 71045; 74177; 76705; 80047; 80048; 80076; 81001; 82150; 83690; 84702; 85025; 99284; Q9967

== ENCOUNTER → 2025-02-16 | Outpatient (CLI) | payer OTHER ==
[2025-02-16 08:46] LABS: ALT/SGPT 27.0 U/L (7.0-40); AST/SGOT 16.0 U/L (<34)
== END ==
LOC: M LAB 07:33
PROVIDERS: ATTEND Podiatrist Foot & Ankle Surgery
DX: B35.1 Tinea unguium (principal)